=== PATIENT | male | born 1990 | race Caucasian/White ===

== ENCOUNTER 2018-02-14 08:45 | Emergency (ER) | payer SELFPAY ==
[~2018-02-14] VITALS: Ht 157.5 cm; Wt 60.8 kg
[2018-02-14 08:53] VITALS: BP 138/81; Ht 157.5 cm; Wt 60.8 kg
== END 2018-02-14 10:20 | disposition home or self-care (01) ==
LOC: ED 08:45
DX: L02.416 Cutaneous abscess of left lower limb (principal)
CPT/HCPCS: J2001

== ENCOUNTER 2018-02-16 11:07 | Emergency (ER) | payer MEDICAID ==
[~2018-02-16] VITALS: Ht 160 cm; Wt 60.9 kg
[2018-02-16 12:01] VITALS: BP 125/74
== END 2018-02-16 14:22 | disposition home or self-care (01) ==
LOC: ED 11:07
DX: Z48.01 Encounter for change or removal of surgical wound dressing (principal)

== ENCOUNTER 2018-05-02 06:50 | Emergency (ER) | payer OTHER ==
[~2018-05-02] VITALS: Ht 160 cm; Wt 61.7 kg
[2018-05-02 07:10] VITALS: Ht 160 cm; Wt 61.7 kg
[2018-05-02 12:03] VITALS: BP 108/62
== END 2018-05-02 12:03 | disposition home or self-care (01) ==
LOC: ED 06:50
DX: S43.014A Anterior dislocation of right humerus, initial encounter (principal); X58.XXXA Exposure to other specified factors, initial encounter; Y93.89 Activity, other specified; Y92.89 Other specified places as the place of occurrence of the external cause; Y99.8 Other external cause status
CPT/HCPCS: J2060; J2250; J2704; Q0092

== ENCOUNTER 2018-11-14 13:26 | Emergency (ER) | payer OTHER ==
[~2018-11-14] VITALS: Ht 157.5 cm; Wt 62.1 kg
[2018-11-14 13:50] VITALS: Ht 157.5 cm; Wt 62.1 kg
[2018-11-14 15:08] VITALS: BP 124/78
== END 2018-11-14 15:08 | disposition home or self-care (01) ==
LOC: ED 13:26
DX: S43.004A Unspecified dislocation of right shoulder joint, initial encounter (principal); X58.XXXA Exposure to other specified factors, initial encounter; Y93.89 Activity, other specified; Y92.89 Other specified places as the place of occurrence of the external cause; Y99.8 Other external cause status
CPT/HCPCS: J2001; Q0092